=== PATIENT | male | born 1965 | race African-American/Black ===

== ENCOUNTER 2018-01-11 15:21 | Emergency (ER) | payer OTHER ==
[~2018-01-11] VITALS: Ht 177.8 cm; Wt 100.0 kg
[2018-01-11 15:41] VITALS: BP 110/68
== END 2018-01-11 18:38 | disposition left against medical advice (07) ==
LOC: ER 15:21
DX: Z53.21 Procedure and treatment not carried out due to patient leaving prior to being seen by health care provider (principal)